=== PATIENT | female | born 1960 | race Caucasian/White ===

== ENCOUNTER 2020-07-24 18:02 | Emergency (ER) | payer OTHER ==
[~2020-07-24] VITALS: Ht 152.4 cm; Wt 112.9 kg
[2020-07-24 18:32] LABS: BASOPHILS % (AUTO) 0.5 % (0.0-2.0); EOSINOPHILS # (AUTO) 0.1 K/uL (0.0-0.7); EOSINOPHILS % (AUTO) 1.6 % (0.0-7.0); HEMATOCRIT 41.8 % (31.2-41.9); LYMPHOCYTES % (AUTO) 19.6 % (20.5-51.5); MEAN CORPUSCULAR HEMOGLOBIN 32.9 uug (24.7-32.8); MEAN CORPUSCULAR HGB CONC 31 g/dL (32.3-35.6); MEAN CORPUSCULAR VOLUME 105.9 fL (75.5-95.3); MONOCYTES # (AUTO) 0.1 K/uL (2.0-10.0); MONOCYTES % (AUTO) 2.4 % (0.0-11.0); NEUTROPHILS # (AUTO) 3.9 K/uL (1.8-8.9); NEUTROPHILS % (AUTO) 75.9 % (38.5-71.5); PLATELET COUNT (AUTO) 237 K/uL (179-408); RED BLOOD CELL COUNT(AUTO) 3.95 MIL/uL (3.63-4.92); WHITE BLOOD COUNT (AUTO) 5.1 K/uL (3.8-11.8)
--- NOTE | 2020-07-24 18:32 | NUR ---
PT REQUESTING NOT TO DISCLOSE PT SITUATION WITH DAUGHTER.
[2020-07-24 18:36] LABS: ETHANOL < 3 MG/DL (0-0)
[2020-07-24 18:38] LABS: CARBON DIOXIDE 27 mmol/L (21-32); CHLORIDE 102 mmol/L (98-107); CREATININE 1.4 mg/dL (0.6-1.3); GLUCOSE 261 mg/dL (74-106); POTASSIUM 3.9 mmol/L (3.5-5.1); UREA NITROGEN, BLOOD 16 mg/dL (7-18)
[2020-07-24 18:43] LABS: ALANINE AMINOTRANSFERASE 82 U/L (14-59); ALKALINE PHOSPHATASE 123 U/L (50-136); ASPARTATE AMINOTRANSFERASE 61 U/L (15-37); BILIRUBIN,DIRECT 0.2 mg/dL (0.0-0.2); BILIRUBIN,TOTAL 0.4 mg/dL (0.2-1.0); TOTAL PROTEIN, SERUM 6.6 g/dL (6.4-8.2)
[2020-07-24 18:57] LABS: ACETAMINOPHEN < 2.0 ug/mL (10-30)
[2020-07-24] MEDS ORDERED: NALO4SPR NS (19:11)
[2020-07-24 19:36] VITALS: BP 153/89
--- NOTE | 2020-07-24 19:36 | NUR ---
Patient discharged to home in stable condition. Written and verbal after care instructions given. Patient verbalizes understanding of instructions. Stressed follow up or return to ER for worsening s/s. Patient able to ambulate from gurney to w/c. Patient ambulated from w/c to family car outside of ED. NAD noted. all belongings with patient
== END 2020-07-24 19:36 | disposition home or self-care (01) ==
LOC: ER 18:15
DX: T40.2X1A Poisoning by other opioids, accidental (unintentional), initial encounter (principal); R41.82 Altered mental status, unspecified; Y92.019 Unspecified place in single-family (private) house as the place of occurrence of the external cause; R94.31 Abnormal electrocardiogram [ECG] [EKG]; G89.29 Other chronic pain; Z20.822 Contact with and (suspected) exposure to COVID-19
CPT/HCPCS: 36415; 71045; 80048; 80076; 80299; 80320; 84484; 85025; 87426; 93005; 99285; U0003; 70030-TC; A4663; G0480